=== PATIENT | female | born 1995 | race Caucasian/White ===

== ENCOUNTER 2018-07-24 00:07 | Inpatient (IN) | payer MEDICAID ==
[~2018-07-24] VITALS: Ht 152.4 cm; Wt 69.4 kg
[2018-07-24] MEDS ORDERED: PREN1TAB78 MT (00:49)
[2018-07-24] MEDS ORDERED: DEXT 5%/LR + PITOCIN 20UNITS/L 1,000 ML IV SCH ×2 (00:49→18:26)
[2018-07-24] MEDS ORDERED: BUTORPHANOL TARTRATE 2 MG/ML VIAL IV PRN (01:00)
[2018-07-24] MEDS ORDERED: METHYLERGONOVINE MALEATE 0.2 MG/ML IM PRN (01:00)
[2018-07-24] MEDS ORDERED: LIDOCAINE HCL 1% 20ML VIAL (Pyxis) INJ INFIL SCH (01:00)
[2018-07-24] MEDS ORDERED: NALOXONE HCL 0.4 MG/ML 1ML VIAL IM PRN (01:00)
[2018-07-24] MEDS ORDERED: MISOPROSTOL 100MCG TABLET VG PRN (01:30)
[2018-07-24] MEDS: LACTATED RINGERS 1,000 ML IV SCH ×4 (01:32→16:33)
[2018-07-24 01:57] LABS: BASOPHILS % 0.5 % (0.0-2.0); EOSINOPHILS % 0.7 % (0.0-5.0); HEMATOCRIT. 33.3 % (36.0-48.0); HEMOGLOBIN. 11.3 g/dL (12.0-16.0); LYMPHOCYTES % 19.1 % (20.0-50.0); MEAN CORPUSCULAR HEMOGLOBIN 29.4 pg (28.0-32.0); MEAN CORPUSCULAR VOLUME 86.8 fL (81.0-99.0); MEAN PLATELET VOLUME 7.9 fl (7.4-10.4); MONOCYTES % 7.5 % (2.0-8.0); NEUTROPHILS % 72.2 % (40.0-76.0); PLATELET 242 x1000/uL (130-400); RED BLOOD CELL COUNT 3.84 mill/uL (4.2-5.4); RED CELL DISTRIBUTION WIDTH 14.8 % (11.6-14.6)
[2018-07-24 02:03] LABS: INR 0.9; PARTIAL THROMBOPLASTIN TIME 29.7 sec (23.4-31.0); PROTHROMBIN TIME 9.6 sec (9.6-11.0)
[2018-07-24 02:57] LABS: HEPATITIS B SURFACE ANTIGEN NEGATIVE
[2018-07-24 03:39] LABS: CLARITY URINE CLOUDY (CLEAR); COLOR URINE YELLOW (YELLOW); KETONES URINE NEGATIVE (NEGATIVE); LEUKOCYTE ESTERASE URINE 1+ (NEGATIVE); NITRITE URINE NEGATIVE (NEGATIVE); OCCULT BLOOD URINE NEGATIVE (NEGATIVE); PH URINE 6.5 (4.5-8.0); PROTEIN URINE NEGATIVE (NEGATIVE); SPECIFIC GRAVITY URINE 1.005 (1.005-1.030); UROBILINOGEN URINE 0.2 E.U./dL (0.2-1.0)
[2018-07-24 03:51] LABS: *AMPHETAMINES SCREEN URINE NEGATIVE (NEGATIVE); *BARBITURATES SCREEN URINE NEGATIVE (NEGATIVE); *BENZODIAZEPINES SCREEN URINE NEGATIVE (NEGATIVE)
[2018-07-24 03:52] LABS: *COCAINE SCREEN URINE NEGATIVE (NEGATIVE); CANNABINOID URINE SCREEN NEGATIVE (NEGATIVE); METHADONE URINE SCREEN NEGATIVE (NEGATIVE); OPIATES URINE SCREEN NEGATIVE (NEGATIVE); PHENCYCLIDINE URINE SCREEN NEGATIVE (NEGATIVE)
[2018-07-24] MEDS ORDERED: GLYCERIN/WITCH HAZEL LEAF MEDICATED PAD TOP PRN (18:30)
[2018-07-24] MEDS ORDERED: DIPHENHYDRAMINE 25MG CAPSULE PO PRN (18:30)
[2018-07-24] MEDS ORDERED: ACETAMINOPHEN WITH CODEINE 300/30MG TABLET PO PRN (18:30)
[2018-07-24] MEDS ORDERED: HEMORRHOIDAL SUPP PR PRN (18:30)
[2018-07-24] MEDS ORDERED: RHO(D) IMMUNE GLOBULIN 300 MCG/SYR IM PRN (18:30)
[2018-07-24] MEDS ORDERED: LANOLIN OINT 0.25 GM TUBE TOP PRN (18:30)
[2018-07-24] MEDS ORDERED: IBUPROFEN 400MG TABLET PO PRN (18:30)
[2018-07-24] MEDS ORDERED: BENZOCAINE/LANOLIN/ALOE VERA SPRAY TOP PRN (18:30)
[2018-07-24 21:00] VITALS: BP 112/71
[2018-07-24 21:30] VITALS: BP 108/69
[2018-07-24 22:00] VITALS: BP 112/70
[2018-07-24] MEDS: DOCUSATE SODIUM 100MG CAPSULE PO SCH (22:00)
[2018-07-24 23:44] VITALS: BP 114/72
[2018-07-25 07:08] LABS: BASOPHILS % 0.4 % (0.0-2.0); EOSINOPHILS % 0.3 % (0.0-5.0); HEMATOCRIT. 31.7 % (36.0-48.0); HEMOGLOBIN. 10.5 g/dL (12.0-16.0); LYMPHOCYTES % 15.3 % (20.0-50.0); MEAN CORPUSCULAR HEMOGLOBIN 28.7 pg (28.0-32.0); MEAN CORPUSCULAR VOLUME 86.8 fL (81.0-99.0); MEAN PLATELET VOLUME 7.9 fl (7.4-10.4); MONOCYTES % 9.1 % (2.0-8.0); NEUTROPHILS % 74.9 % (40.0-76.0); PLATELET 230 x1000/uL (130-400); RED BLOOD CELL COUNT 3.65 mill/uL (4.2-5.4); RED CELL DISTRIBUTION WIDTH 14.9 % (11.6-14.6)
[2018-07-25 07:31] VITALS: BP 100/56
[2018-07-25] MEDS: FERROUS SULFATE 325MG TABLET PO SCH ×3 (08:49→17:51)
[2018-07-25] MEDS: PRENATAL VIT/FE FUMARATE/FA TABLET PO SCH (08:49)
[2018-07-25] MEDS: IBUPROFEN 800MG TABLET PO PRN (12:56)
[2018-07-25 16:08] VITALS: BP 90/51
[2018-07-25 20:00] VITALS: BP 105/68
[2018-07-25] MEDS: DOCUSATE SODIUM 100MG CAPSULE PO SCH (21:23)
[2018-07-26 04:00] VITALS: BP 98/58
[2018-07-26 07:22] VITALS: BP 90/51
[2018-07-26] MEDS: PRENATAL VIT/FE FUMARATE/FA TABLET PO SCH (08:40)
[2018-07-26] MEDS: FERROUS SULFATE 325MG TABLET PO SCH (08:41)
[2018-07-26] MEDS: IBUPROFEN 800MG TABLET PO PRN (08:41)
== END 2018-07-26 11:55 | disposition home or self-care (01) | DRG 560 ==
LOC: OBSVTOIN 00:07 → 8 EST LDRP 00:07 → 8 EST A/PP 20:30
PROVIDERS: ADMIT Obstetrics & Gynecology; ATTEND Obstetrics & Gynecology
PROC: 0W8NXZZ Division of Female Perineum, External Approach (ICD-10-PCS; principal; 2018-07-24)
PROC: 10E0XZZ Delivery of Products of Conception, External Approach (ICD-10-PCS; 2018-07-24)
PROC: 3E0R3BZ Introduction of Anesthetic Agent into Spinal Canal, Percutaneous Approach (ICD-10-PCS; 2018-07-24)
PROC: 00HU33Z Insertion of Infusion Device into Spinal Canal, Percutaneous Approach (ICD-10-PCS; 2018-07-24)
DX: O80 Encounter for full-term uncomplicated delivery (principal); Z37.0 Single live birth; Z3A.40 40 weeks gestation of pregnancy
CPT/HCPCS: 36415; 80305; 86592; 86703; 86762; 86850; 86900; 87340; J0595; J2590; J3490; J7120